=== PATIENT | male | born 1975 | race Two or more races ===

== ENCOUNTER 2016-12-20 08:42 | Emergency (ER) | payer SELFPAY ==
[~2016-12-20] VITALS: Ht 172.7 cm; Wt 79.4 kg
[2016-12-20] MEDS ORDERED: ASPIRIN 81 MG TAB.CHEW ONE (08:51)
[2016-12-20] MEDS ORDERED: ASPIRIN 81 MG TAB.CHEW PO ONE (09:00)
[2016-12-20 09:09] LABS: BASOPHILS % (AUTO) 0.4 % (0.0-2.0); DIFF TOTAL % 100 %; EOSINOPHILS % (AUTO) 0.4 % (0.0-6.0); HEMATOCRIT 44 % (39-51); HEMOGLOBIN 15.7 g/dL (13.5-17.5); LYMPHOCYTES # (AUTO) 1.4 /CMM (0.8-4.8); LYMPHOCYTES % (AUTO) 17.4 % (20.0-44.0); MEAN CORPUSCULAR HEMOGLOBIN 31 PG (26.0-33.0); MEAN CORPUSCULAR HGB CONC 36 g/dl (31.0-36.0); MEAN CORPUSCULAR VOLUME 87 fL (80-96); MONOCYTES # (AUTO) 0.3 /CMM (0.1-1.30); MONOCYTES % (AUTO) 3.5 % (2.0-12.0); NEUTROPHILS # (AUTO) 6.5 /CMM (1.8-8.9); NEUTROPHILS % (AUTO) 78.3 % (43.0-81.0); PLATELET COUNT (AUTO) 299 /CMM (150-450); RED BLOOD CELL COUNT(AUTO) 4.98 MIL/uL (4.5-6.0); WHITE BLOOD COUNT (AUTO) 8.3 K/uL (4.3-11.0)
[2016-12-20 09:25] LABS: TROPONIN I < 0.017 ng/mL (0.00-0.056)
[2016-12-20 09:27] LABS: INR 0.93 (0.87-1.13)
[2016-12-20 09:51] LABS: ALBUMIN 3.9 g/dL (3.4-5.0); ANION GAP 24 (5-14); BILIRUBIN,TOTAL 0.3 mg/dL (0.2-1.0); CALCIUM, SERUM 8.5 mg/dL (8.5-10.1); CARBON DIOXIDE 16 mmol/L (21-32); CHLORIDE 97 mmol/L (98-107); GFR 82 mL/min (>60); GLUCOSE 182 mg/dL (74-106); POTASSIUM 3.7 mmol/L (3.5-5.1); SODIUM SERUM 133 mmol/L (136-145); TOTAL PROTEIN, SERUM 8.7 g/dL (6.4-8.2); UREA NITROGEN, BLOOD 10 mg/dL (7-18)
[2016-12-20 09:56] LABS: INDIRECT BILIRUBIN 0.3 mg/dL (0.0-1.1)
[2016-12-20 10:10] LABS: ALANINE AMINOTRANSFERASE 52 U/L (12-78); ASPARTATE AMINOTRANSFERASE 44 U/L (15-37)
[2016-12-20 10:39] VITALS: BP 159/82
== END 2016-12-20 10:40 | disposition home or self-care (01) ==
LOC: ER 08:44
DX: R07.89 Other chest pain (principal); F15.10 Other stimulant abuse, uncomplicated; F17.200 Nicotine dependence, unspecified, uncomplicated
CPT/HCPCS: 36415; 71010; 80048; 80076; 84484; 85025; 85730; 93005 ×2; 99285; A4606; Z7610